=== PATIENT | male | born 2000 | race Caucasian/White ===

== ENCOUNTER 2021-04-26 12:44 | Emergency (ER) | payer OTHER ==
[~2021-04-26 12:44] MED LIST: BACLOFEN 10MG T10 MG PO; NAPROXEN500 MG PO
[2021-04-26 13:54] LABS: CORONAVIRUS 2019 SARS-COV-2 NEGATIVE (NEGATIVE); INFLUENZA A NAA NEGATIVE (NEGATIVE)
== END 2021-04-26 14:18 | disposition home or self-care (01) ==
LOC: FER 12:44
PROVIDERS: Nurse Practitioner Family
DX: J02.0 Streptococcal pharyngitis (principal); F17.290 Nicotine dependence, other tobacco product, uncomplicated; Z20.822 Contact with and (suspected) exposure to COVID-19
CPT/HCPCS: 87880; 96372; 99283; J0561; J1885; U0002

== ENCOUNTER 2021-08-11 13:33 | Emergency (ER) | payer OTHER ==
[2021-08-11 14:36] LABS: BASOPHIL 0.8 % (0-2); EOSINOPHIL 3.3 % (0-5); HCT 45.2 % (42.0-52.0); HGB 15.7 g/dl (13.2-18.0); LYMPHOCYTE 21.7 % (15-48); MCH 30.5 pg (25.0-31.0); MCHC 34.7 g/dL (32.0-36.0); MCV 87.8 fL (78.0-100.0); MONOCYTE 11.3 % (0-12); MPV 9.4 fL (6.0-9.5); NEUTROPHIL 62.6 % (41-80); NRBC 0; PLT 283 K/uL (150-400); RBC 5.15 M/uL (4.70-6.00); RDW 12.1 % (11.5-14.0); WBC 6.6 K/uL (4.0-10.5)
[2021-08-11 14:37] LABS: BILIRUBIN NEGATIVE (NEGATIVE); BLOOD NEGATIVE Ery/uL (NEGATIVE); CLARITY CLEAR (CLEAR); COLOR YELLOW (YELLOW); GLUCOSE (U) NORMAL (NORMAL); LEUKOCYTES NEGATIVE Leu/uL (NEGATIVE); NITRITE NEGATIVE (NEGATIVE); PROTEIN NEGATIVE (NEGATIVE)
[2021-08-11 15:58] LABS: ALBUMIN 4.9 g/dL (3.4-5.0); BILIRUBIN - TOTAL 0.8 mg/dL (0.2-1.0); BUN/CREAT RATIO (CALC) 16.1 RATIO; CREATININE 0.93 mg/dL (0.67-1.17); GLOBULIN (CALCULATION) 3.7 g/dL; POTASSIUM 3.2 mmol/L (3.5-5.1); TOTAL PROTEIN 8.6 g/dL (6.4-8.2)
[2021-08-11] MEDS ORDERED: CYCLOBENZAPRINE10 MG PO (16:54)
[2021-08-11] MEDS ORDERED: MEDROL 4MG DOSEP4 MG PO (16:54)
== END 2021-08-11 17:06 | disposition home or self-care (01) ==
LOC: FER 13:33
PROVIDERS: Emergency Medicine
DX: R10.9 Unspecified abdominal pain (principal); Z28.310 Unvaccinated for COVID-19
CPT/HCPCS: 36415; 80053; 81003; 82150; 83690; 85025; J1885; J2405

== ENCOUNTER 2021-08-12 14:20 | Emergency (ER) | payer OTHER ==
[~2021-08-12 14:20] MED LIST changes: +CYCLOBENZAPRINE10 MG PO; +MEDROL 4MG DOSEP4 MG PO
== END 2021-08-12 17:18 | disposition left against medical advice (07) ==
LOC: FER 14:20
DX: R10.32 Left lower quadrant pain (principal); Z53.29 Procedure and treatment not carried out because of patient's decision for other reasons; Z28.310 Unvaccinated for COVID-19
CPT/HCPCS: 99281